=== PATIENT | female | born 1970 | race Caucasian/White ===

== ENCOUNTER 2017-04-05 19:03 | Emergency (ER) | payer OTHER ==
[~2017-04-05] VITALS: Ht 170.2 cm; Wt 108.4 kg
[~2017-04-05 19:03] MED LIST: DICLOFENAC SOD100 MG PO; FLEXERIL10 MG PO; HYDROCHLOROTH12.5 M3 PO; KEFLEX500 MG PO; MOTRIN800 MG PO; SYNTHROID100 MCG PO; SYNTHROID88 MCG PO
[2017-04-05 19:25] LABS: HEMATOCRIT 37.1 % (36.0-46.0); MCH 30.8 PG (29.0-34.0); MCHC 35.6 G/DL (30.0-36.0); MCV 86.5 FL (83-99); MEAN PLAT.VOLUME 9.6 uM^3 (9.5-12.4); PLATELET COUNT 387 K/uL (156-360); RBC DIS.WIDTH-CV 13.1 % (11.8-14.6); RBC DIS.WIDTH-SD 40.8 % (39-53); RED BLOOD COUNT 4.29 M/uL (3.80-5.20); WHITE BLOOD COUNT 10.2 K/uL (4.1-10.2)
[2017-04-05 19:27] LABS: ADD MIUA? YES; BILIRUBIN NEGATIVE; BLOOD NEGATIVE; COLOR YELLOW ((YELLOW)); GLUCOSE (STRIP) NEGATIVE; KETONES NEGATIVE; LEUKOCYTES NEGATIVE; NITRITE NEGATIVE; PROTEIN (STRIP) 30; SPECIFIC GRAVITY 1.032 (1.000-1.030); UROBILINOGEN 0.2 MG/DL (0.2-1.0)
[2017-04-05 19:32] LABS: BACTERIA RARE /HPF; EPITHELIAL CELLS RARE /HPF; MUCUS TRACE /LPF; RED BLOOD CELLS 0-5 /HPF (0-5); UCUL ADDED? NO; WHITE BLOOD CELLS 0-5 /HPF (0-5)
[2017-04-05 19:33] LABS: CHLORIDE 105 mEq/L (99-109); POTASSIUM 3.9 mEq/L (3.7-5.4); SODIUM 139 mEq/L (136-147)
[2017-04-05 19:35] LABS: GLUCOSE 101 mg/dL (70-99)
[2017-04-05 19:37] LABS: ANION GAP 9 MEQ/L (2-14); TOTAL BILIRUBIN 0.6 mg/dL (0.0-1.0)
[2017-04-05 19:39] LABS: ALKALINE PHOSPHATASE 82 IU/L (3-129); GFR ESTIMATE (CALCULATED) > 59 mL/min/
[2017-04-05 19:40] LABS: UREA NITROGEN (BUN) 15 mg/dL (9-23)
[2017-04-05 19:42] LABS: LIPASE 27 U/L (1.0-51.0)
[2017-04-05] MEDS ORDERED: NORCO 7.5/321 TABLET PO (22:18)
[2017-04-05] MEDS ORDERED: MOTRIN800 MG PO (22:18)
[2017-04-05 22:38] VITALS: BP 145/83
== END 2017-04-05 22:40 | disposition home or self-care (01) ==
LOC: EME 19:03
DX: N83.201 Unspecified ovarian cyst, right side (principal); E86.0 Dehydration; K58.0 Irritable bowel syndrome with diarrhea; E07.9 Disorder of thyroid, unspecified; Z87.442 Personal history of urinary calculi; Z90.710 Acquired absence of both cervix and uterus; Z85.3 Personal history of malignant neoplasm of breast
CPT/HCPCS: 74177; 76856; 80053; 81003; 83605; 83690; 85027; 99281; 99285; J1885; J2405; J3010; J7030